=== PATIENT | male | born 1950 | race Caucasian/White ===

== ENCOUNTER 2017-07-19 14:18 | Inpatient (IN) | payer MEDICAID ==
[~2017-07-19] VITALS: Ht 175.3 cm; Wt 51.0 kg
[2017-07-19] MEDS: POTASSIUM CHLORIDE 40 MEQ in SODIUM CHLORIDE 0.9% 500 ML IV SCH ×2 (08:00→22:01)
[~2017-07-19 14:18] MED LIST: HYDR25PO5 PO; OXYC1TAB9 PO; RANI300T3 PO; atarax PO; tagamet PO
[2017-07-19] MEDS ORDERED: SODIUM CHLORIDE 0.9% 1,000 ML IV ONE (14:41)
[2017-07-19] MEDS ORDERED: SODIUM CHLORIDE 0.9% 1,000ML IVBOLUS ONE (15:00)
[2017-07-19] MEDS ORDERED: SODIUM CHLORIDE FLUSH 10ML SYR IVF ONE (15:00)
[2017-07-19 15:13] LABS: HEMATOCRIT 39.4 % (39.2-51.8); HEMOGLOBIN 13.1 g/dL (13.7-18.0); WHITE BLOOD COUNT 15.5 x10^3/uL (3.4-10)
[2017-07-19 15:25] LABS: ASPARTATE AMINO TRANSFERASE 15 U/L (15-37); BLOOD UREA NITROGEN 43 mg/dL (7-18)
[2017-07-19] MEDS ORDERED: CEFTRIAXONE PMX 1GM/50ML 50 ML IV ONE (15:30)
[2017-07-19] MEDS ORDERED: POTASSIUM CHLORIDE 40 MEQ in D5%-0.9% NACL 1,000 ML IV SCH (15:30)
[2017-07-19 15:51] LABS: ACETAMINOPHEN < 2 mcg/mL (10-30)
[2017-07-19 16:04] LABS: IS PT STATUS REG ER OR PRE ER? YES
[2017-07-19] MEDS ORDERED: PIPERACILLIN/TAZO/PMX 3.375GM 50 ML IV ONE (17:00)
[2017-07-19] MEDS ORDERED: SODIUM CHLORIDE 0.9%, 500ML IVBOLUS ONE (17:00)
[2017-07-19] MEDS ORDERED: PIPERACILLIN/TAZO/PMX 3.375GM 50 ML ONE (17:03)
[2017-07-19] MEDS ORDERED: DEXTROSE 5% 1,000 ML IV SCH (18:00)
[2017-07-19] MEDS ORDERED: hydrALAzine 20 MG/ML, 1ML IVPush PRN (18:00)
[2017-07-19] MEDS: NICOTINE 21 MG/24 HR PATCH.TD24 TD SCH (18:00)
[2017-07-19] MEDS ORDERED: PANTOPRAZOLE 20MG TABLET PO SCH (18:00)
[2017-07-19] MEDS ORDERED: ENOXAPARIN 40 MG/0.4 ML SQ SCH (18:00)
[2017-07-19] MEDS ORDERED: POTASSIUM PHOSPHATE 44 MEQ in SODIUM CHLORIDE 0.9% 500 ML IV ONE (18:00)
[2017-07-19] MEDS ORDERED: ONDANSETRON 2MG/ML, 2ML IVPush PRN (18:00)
[2017-07-19] MEDS ORDERED: VANCOMYCIN PER PHARMACY MC PRN (18:00)
[2017-07-19] MEDS ORDERED: ACETAMINOPHEN 325 MG TABLET PO PRN (18:00)
[2017-07-19] MEDS ORDERED: VANCOMYCIN PMX 1GM/200ML 200 ML IV ONE (18:00)
[2017-07-19] MEDS ORDERED: PHARMACOKINETIC CONSULTATION MC ONE (19:30)
[2017-07-19] MEDS ORDERED: VANCOMYCIN 1,400 MG in SODIUM CHLORIDE 0.9% 250 ML IV SCH (19:30)
[2017-07-19] MEDS ORDERED: PHARMACOKINETIC MONITORING MC PRN (19:30)
[2017-07-19 19:47] VITALS: BP 120/75
[2017-07-20 01:57] LABS: ABG COLLECTION SITE RIGHT FEMORAL
[2017-07-20 02:02] LABS: HEMATOCRIT 45.5 % (39.2-51.8)
[2017-07-20 02:12] LABS: ASPARTATE AMINO TRANSFERASE 33 U/L (15-37); BLOOD UREA NITROGEN 43 mg/dL (7-18)
[2017-07-20 02:15] VITALS: BP 55/41
[2017-07-20] MEDS ORDERED: NOREPINEPHRINE 4 MG in SODIUM CHLORIDE 0.9% 246 ML IV PRN (02:30)
[2017-07-20] MEDS ORDERED: SODIUM CHLORIDE 0.9% 1,000ML IVBOLUS ONE ×3 (02:30→08:00)
[2017-07-20] MEDS: PIPERACILLIN/TAZO/PMX 3.375GM 50 ML IV SCH ×4 (03:29→21:19)
[2017-07-20] MEDS ORDERED: POTASSIUM PHOSPHATE 44 MEQ in SODIUM CHLORIDE 0.9% 500 ML IV ONE (07:00)
[2017-07-20] MEDS ORDERED: SODIUM CHLORIDE 0.9%, 500ML IVBOLUS ONE ×2 (08:00→15:30)
[2017-07-20 08:46] LABS: DAU SCREEN DISCLAIMER
[2017-07-20] MEDS: THIAMINE 100 MG in SODIUM CHLORIDE 0.9% 50 ML IV SCH (09:57)
[2017-07-20] MEDS ORDERED: POTASSIUM CHLORIDE 20 MEQ in DEXTROSE 5% 1,000 ML IV SCH ×3 (10:00→13:00)
[2017-07-20] MEDS: PANTOPRAZOLE 40 MG IV IV SCH ×2 (10:49→22:14)
[2017-07-20 12:09] LABS: BLOOD UREA NITROGEN 37 mg/dL (7-18)
[2017-07-20] MEDS: NICOTINE 21 MG/24 HR PATCH.TD24 TD SCH (18:01)
[2017-07-20] MEDS: ENOXAPARIN 30 MG/0.3 ML SQ SCH (18:01)
[2017-07-21] MEDS: POTASSIUM CHLORIDE 20 MEQ in DEXTROSE 5% 1,000 ML IV SCH ×3 (00:21→17:15)
[2017-07-21] MEDS: PIPERACILLIN/TAZO/PMX 3.375GM 50 ML IV SCH ×4 (04:20→21:09)
[2017-07-21 05:05] LABS: BLOOD UREA NITROGEN 29 mg/dL (7-18)
[2017-07-21 05:58] LABS: HEMATOCRIT 31.9 % (39.2-51.8); HEMOGLOBIN 10.6 g/dL (13.7-18.0); WHITE BLOOD COUNT 10.6 x10^3/uL (3.4-10)
[2017-07-21] MEDS ORDERED: POTASSIUM PHOSPHATE 44 MEQ in SODIUM CHLORIDE 0.9% 500 ML IV ONE (07:00)
[2017-07-21] MEDS ORDERED: MAGNESIUM SULFATE PMX 4GM/100M 100 ML IV ONE (07:00)
[2017-07-21] MEDS: PANTOPRAZOLE 40 MG IV IV SCH (09:27)
[2017-07-21] MEDS: THIAMINE 100 MG in SODIUM CHLORIDE 0.9% 50 ML IV SCH (09:27)
[2017-07-21] MEDS ORDERED: VANCOMYCIN 1,000 MG in SODIUM CHLORIDE 0.9% 100 ML IV SCH (12:00)
[2017-07-21 14:24] VITALS: BP 102/67
[2017-07-21] MEDS: NICOTINE 21 MG/24 HR PATCH.TD24 TD SCH (17:15)
[2017-07-21] MEDS: ENOXAPARIN 30 MG/0.3 ML SQ SCH (17:15)
[2017-07-21 19:45] VITALS: BP 99/62
[2017-07-21] MEDS ORDERED: ACETAMINOPHEN 325 MG TABLET PO PRN (20:30)
[2017-07-21] MEDS ORDERED: ONDANSETRON 2MG/ML, 2ML IVPush PRN (20:30)
[2017-07-21] MEDS ORDERED: VANCOMYCIN PER PHARMACY MC PRN (20:30)
[2017-07-21] MEDS ORDERED: PHARMACOKINETIC MONITORING MC PRN (20:30)
[2017-07-21] MEDS ORDERED: hydrALAzine 20 MG/ML, 1ML IVPush PRN (20:30)
[2017-07-21] MEDS: MORPHINE SULFATE 4 MG/ML, 1ML IVPush PRN (21:09)
[2017-07-22] MEDS: POTASSIUM CHLORIDE 20 MEQ in DEXTROSE 5% 1,000 ML IV SCH (01:08)
[2017-07-22 02:20] VITALS: BP 100/65
[2017-07-22] MEDS: PIPERACILLIN/TAZO/PMX 3.375GM 50 ML IV SCH ×4 (03:31→20:55)
[2017-07-22 06:21] LABS: BLOOD UREA NITROGEN 14 mg/dL (7-18)
[2017-07-22 07:11] VITALS: BP 96/62
[2017-07-22] MEDS: THIAMINE 100 MG in SODIUM CHLORIDE 0.9% 50 ML IV SCH (09:23)
[2017-07-22] MEDS: PANTOPRAZOLE 40 MG IV IV SCH (09:24)
[2017-07-22] MEDS ORDERED: POTASSIUM CHLORIDE 20 MEQ in DEXTROSE 5% 1,000 ML IV SCH ×2 (10:30→22:00)
[2017-07-22 12:40] LABS: BLOOD UREA NITROGEN 11 mg/dL (7-18)
[2017-07-22 13:08] VITALS: BP 96/64
[2017-07-22] MEDS ORDERED: POTASSIUM CHLORIDE 20 MEQ TAB.ER.PRT PO ONE (15:00)
[2017-07-22] MEDS: NICOTINE 21 MG/24 HR PATCH.TD24 TD SCH (17:56)
[2017-07-22] MEDS: ENOXAPARIN 30 MG/0.3 ML SQ SCH (17:56)
[2017-07-22 18:24] LABS: BLOOD UREA NITROGEN 10 mg/dL (7-18)
[2017-07-22 19:37] VITALS: BP 84/55
[2017-07-22] MEDS ORDERED: SODIUM CHLORIDE 0.45% 1,000 ML IV SCH (20:00)
[2017-07-22] MEDS: MORPHINE SULFATE 4 MG/ML, 1ML IVPush PRN (20:55)
[2017-07-23] MEDS ORDERED: VANCOMYCIN 1,000 MG in SODIUM CHLORIDE 0.9% 100 ML IV SCH (01:00)
[2017-07-23 01:51] VITALS: BP 100/67
[2017-07-23] MEDS: PIPERACILLIN/TAZO/PMX 3.375GM 50 ML IV SCH ×2 (03:21→10:04)
[2017-07-23] MEDS: MORPHINE SULFATE 4 MG/ML, 1ML IVPush PRN (03:22)
[2017-07-23 04:59] LABS: HEMATOCRIT 29.5 % (39.2-51.8); HEMOGLOBIN 9.9 g/dL (13.7-18.0); WHITE BLOOD COUNT 6.6 x10^3/uL (3.4-10)
[2017-07-23 05:00] LABS: ASPARTATE AMINO TRANSFERASE 28 U/L (15-37); BLOOD UREA NITROGEN 7 mg/dL (7-18)
[2017-07-23 06:01] LABS: DIFF TOTAL CELLS COUNTED 100 CELL DIFF
[2017-07-23 06:03] LABS: VERIFY COUNTS? YES
[2017-07-23 06:04] LABS: ANISOCYTOSIS 1+; LARGE PLATELETS 1+; POLYCHROMASIA 1+
[2017-07-23 06:59] VITALS: BP 98/64
[2017-07-23] MEDS ORDERED: D5%-0.45% NACL 1,000 ML IV SCH (09:30)
[2017-07-23] MEDS: THIAMINE 100 MG in SODIUM CHLORIDE 0.9% 50 ML IV SCH (10:03)
[2017-07-23] MEDS: PANTOPRAZOLE 40 MG IV IV SCH (10:04)
[2017-07-23] MEDS: HYDROcodone/APAP 5/325 TABLET PO PRN ×3 (10:05→20:48)
[2017-07-23 13:14] VITALS: BP 96/61
[2017-07-23] MEDS ORDERED: CEFTRIAXONE PMX 1GM/50ML 50 ML IV SCH (16:00)
[2017-07-23] MEDS ORDERED: SODIUM PHOSPHATE 4 MEQ/ML IV SCH (16:00)
[2017-07-23] MEDS ORDERED: SODIUM PHOSPHATE 40 MEQ in SODIUM CHLORIDE 0.9% 500 ML IV ONE (16:30)
[2017-07-23] MEDS ORDERED: GADOBUTROL 10 MMOL/10 ML PFS ONE (16:33)
[2017-07-23] MEDS: ENOXAPARIN 30 MG/0.3 ML SQ SCH (18:29)
[2017-07-23] MEDS: NICOTINE 21 MG/24 HR PATCH.TD24 TD SCH (18:29)
[2017-07-23 19:55] VITALS: BP 103/62
[2017-07-23] MEDS ORDERED: DOXYCYCLINE 100MG TABLET PO SCH (21:00)
[2017-07-24 02:08] VITALS: BP 95/60
[2017-07-24 06:38] LABS: HEMATOCRIT 31.3 % (39.2-51.8); HEMOGLOBIN 10.5 g/dL (13.7-18.0); WHITE BLOOD COUNT 7.2 x10^3/uL (3.4-10)
[2017-07-24 07:20] VITALS: BP 99/63
[2017-07-24 08:03] LABS: BLOOD UREA NITROGEN 7 mg/dL (7-18)
[2017-07-24] MEDS: HYDROcodone/APAP 5/325 TABLET PO PRN ×2 (09:00→20:01)
[2017-07-24] MEDS: THIAMINE 100 MG in SODIUM CHLORIDE 0.9% 50 ML IV SCH (09:05)
[2017-07-24] MEDS ORDERED: LIDOCAINE 1%, 20ML ONE (10:09)
[2017-07-24] MEDS ORDERED: NALOXONE 1 MG/ML, 2ML ONE (11:00)
[2017-07-24] MEDS ORDERED: FENTANYL PF 100 MCG/2ML ONE (11:00)
[2017-07-24] MEDS ORDERED: FLUMAZENIL 0.1 MG/1 ML, 5ML ONE (11:00)
[2017-07-24] MEDS ORDERED: MIDAZOLAM 1 MG/ML, 5ML ONE (11:00)
[2017-07-24 13:14] VITALS: BP 97/59
[2017-07-24] MEDS: LEVOFLOXACIN/PMX 750MG/150ML 150 ML IV SCH (15:58)
[2017-07-24] MEDS: PANTOPRAZOLE 40 MG IV IVPush SCH (15:58)
[2017-07-24] MEDS: FENTANYL 50 MCG PATCH TD SCH (16:00)
[2017-07-24] MEDS: NICOTINE 21 MG/24 HR PATCH.TD24 TD SCH (18:13)
[2017-07-24 19:46] VITALS: BP 156/91
[2017-07-24] MEDS: D5%-0.45% NACL 1,000 ML IV SCH (20:01)
[2017-07-25] MEDS: HYDROcodone/APAP 5/325 TABLET PO PRN ×3 (02:41→09:53)
[2017-07-25 03:24] VITALS: BP 147/86
[2017-07-25] MEDS: D5%-0.45% NACL 1,000 ML IV SCH ×2 (06:00→17:39)
[2017-07-25 06:27] LABS: BLOOD UREA NITROGEN 6 mg/dL (7-18)
[2017-07-25 06:44] LABS: FERRITIN 480.2 ng/mL (26-388); TOTAL IRON BINDING CAPACITY 83 mcg/dL (250-450)
[2017-07-25 06:56] LABS: HEMATOCRIT 27.3 % (39.2-51.8); HEMOGLOBIN 9.2 g/dL (13.7-18.0)
[2017-07-25 07:46] VITALS: BP 90/60
[2017-07-25] MEDS: THIAMINE 100 MG in SODIUM CHLORIDE 0.9% 50 ML IV SCH (08:50)
[2017-07-25] MEDS: PANTOPRAZOLE 40 MG IV IVPush SCH (08:51)
[2017-07-25] MEDS: LEVOFLOXACIN/PMX 750MG/150ML 150 ML IV SCH (09:52)
[2017-07-25 12:57] VITALS: BP 84/54
[2017-07-25] MEDS: NICOTINE 21 MG/24 HR PATCH.TD24 TD SCH (17:36)
[2017-07-25 19:00] VITALS: BP 89/57
[2017-07-25 20:35] VITALS: BP 100/64
[2017-07-26] VITALS: BP 96/61
[2017-07-26 06:05] LABS: HEMATOCRIT 26.6 % (39.2-51.8); HEMOGLOBIN 9.1 g/dL (13.7-18.0); WHITE BLOOD COUNT 7.9 x10^3/uL (3.4-10)
[2017-07-26 06:08] LABS: BLOOD UREA NITROGEN 4 mg/dL (7-18)
[2017-07-26 06:11] LABS: ASPARTATE AMINO TRANSFERASE 16 U/L (15-37)
[2017-07-26 07:37] VITALS: BP 124/65
[2017-07-26] MEDS: THIAMINE 100 MG in SODIUM CHLORIDE 0.9% 50 ML IV SCH (09:42)
[2017-07-26] MEDS: PANTOPRAZOLE 40 MG IV IVPush SCH (09:42)
[2017-07-26] MEDS: LEVOFLOXACIN/PMX 750MG/150ML 150 ML IV SCH (11:15)
[2017-07-26] MEDS: D5%-0.45% NACL 1,000 ML IV SCH (11:17)
[2017-07-26 13:31] VITALS: BP 91/59
[2017-07-26] MEDS: HYDROcodone/APAP 5/325 TABLET PO PRN (15:10)
[2017-07-26] MEDS: NICOTINE 21 MG/24 HR PATCH.TD24 TD SCH (18:31)
[2017-07-26 19:17] VITALS: BP 86/60
[2017-07-27] MEDS: HYDROcodone/APAP 5/325 TABLET PO PRN ×4 (01:09→16:03)
[2017-07-27 02:11] VITALS: BP 92/58
[2017-07-27 05:02] LABS: HEMATOCRIT 25.1 % (39.2-51.8); HEMOGLOBIN 8.4 g/dL (13.7-18.0); WHITE BLOOD COUNT 6.7 x10^3/uL (3.4-10)
[2017-07-27 05:10] LABS: ASPARTATE AMINO TRANSFERASE 15 U/L (15-37); BLOOD UREA NITROGEN 4 mg/dL (7-18)
[2017-07-27 08:37] VITALS: BP 105/67
[2017-07-27] MEDS: PANTOPROZOLE 40MG TABLET PO SCH (11:22)
[2017-07-27] MEDS: THIAMINE 100 MG in SODIUM CHLORIDE 0.9% 50 ML IV SCH (11:23)
[2017-07-27] MEDS: D5%-0.45% NACL 1,000 ML IV SCH (11:24)
[2017-07-27] MEDS: FENTANYL 50 MCG PATCH TD SCH (12:37)
[2017-07-27] MEDS: LEVOFLOXACIN/PMX 750MG/150ML 150 ML IV SCH (13:44)
[2017-07-27 16:28] VITALS: BP 102/70
[2017-07-27] MEDS: NICOTINE 21 MG/24 HR PATCH.TD24 TD SCH (17:20)
[2017-07-27 18:44] VITALS: BP 94/62
[2017-07-28] MEDS: HYDROcodone/APAP 5/325 TABLET PO PRN ×5 (00:02→23:10)
[2017-07-28 02:45] VITALS: BP 100/57
[2017-07-28] MEDS: ALUMINUM/MAG/SIMETHICONE 30 ML UDC PO PRN (02:58)
[2017-07-28 06:25] LABS: HEMATOCRIT 25.9 % (39.2-51.8); HEMOGLOBIN 8.5 g/dL (13.7-18.0); WHITE BLOOD COUNT 8.6 x10^3/uL (3.4-10)
[2017-07-28] MEDS: PANTOPROZOLE 40MG TABLET PO SCH (06:27)
[2017-07-28 06:44] LABS: BLOOD UREA NITROGEN 4 mg/dL (7-18)
[2017-07-28] MEDS: D5%-0.45% NACL 1,000 ML IV SCH (08:07)
[2017-07-28 08:40] VITALS: BP 121/76
[2017-07-28] MEDS: THIAMINE 100 MG in SODIUM CHLORIDE 0.9% 50 ML IV SCH (09:38)
[2017-07-28] MEDS ORDERED: POTASSIUM CHLORIDE 20 MEQ in SODIUM CHLORIDE 0.9% 250 ML IV ONE (10:30)
[2017-07-28 13:54] VITALS: BP 112/72
[2017-07-28] MEDS ORDERED: OMNIPAQUE 350 MG/ML, 100ML BOTTLE ONE (14:43)
[2017-07-28] MEDS: LEVOFLOXACIN/PMX 750MG/150ML 150 ML IV SCH (14:55)
[2017-07-28] MEDS: NICOTINE 21 MG/24 HR PATCH.TD24 TD SCH (14:55)
[2017-07-28 19:02] VITALS: BP 92/59
[2017-07-28] MEDS ORDERED: ACETAMINOPHEN 325 MG TABLET PO PRN (20:30)
[2017-07-28] MEDS ORDERED: hydrALAzine 20 MG/ML, 1ML IVPush PRN (20:30)
[2017-07-29 01:51] VITALS: BP 93/58
[2017-07-29] MEDS: HYDROcodone/APAP 5/325 TABLET PO PRN ×5 (03:52→23:29)
[2017-07-29 05:36] LABS: HEMATOCRIT 23.2 % (39.2-51.8); HEMOGLOBIN 7.8 g/dL (13.7-18.0); WHITE BLOOD COUNT 8.4 x10^3/uL (3.4-10)
[2017-07-29 05:44] LABS: BLOOD UREA NITROGEN 5 mg/dL (7-18)
[2017-07-29 07:36] VITALS: BP 99/65
[2017-07-29] MEDS: THIAMINE 100 MG in SODIUM CHLORIDE 0.9% 50 ML IV SCH (10:16)
[2017-07-29] MEDS: PANTOPROZOLE 40MG TABLET PO SCH (10:16)
[2017-07-29 15:53] VITALS: BP 96/59
[2017-07-29] MEDS: NICOTINE 21 MG/24 HR PATCH.TD24 TD SCH (18:22)
[2017-07-29 19:33] VITALS: BP 101/66
[2017-07-30 00:58] VITALS: BP 111/71
[2017-07-30] MEDS: HYDROcodone/APAP 5/325 TABLET PO PRN ×5 (04:26→23:57)
[2017-07-30] MEDS ORDERED: PINK BISMUTH 87.33 MG/5 ML ORAL SUSP PO PRN (08:30)
[2017-07-30] MEDS ORDERED: FENTANYL 100 MCG PATCH ONE (08:45)
[2017-07-30] MEDS: PANTOPROZOLE 40MG TABLET PO SCH (09:03)
[2017-07-30] MEDS: FENTANYL 100 MCG PATCH TD SCH (09:04)
[2017-07-30] MEDS: FENTANYL REMOVE PATCH NOTE XX SCH (09:05)
[2017-07-30 09:15] VITALS: BP 116/71
[2017-07-30 13:53] VITALS: BP 99/66
[2017-07-30] MEDS: LIDODERM 5% PATCH TD SCH (14:58)
[2017-07-30 19:03] VITALS: BP 101/68
[2017-07-30] MEDS: NICOTINE 21 MG/24 HR PATCH.TD24 TD SCH (19:23)
[2017-07-31 01:26] VITALS: BP 92/56
[2017-07-31 05:15] LABS: HEMATOCRIT 26.1 % (39.2-51.8); HEMOGLOBIN 8.7 g/dL (13.7-18.0); WHITE BLOOD COUNT 8.2 x10^3/uL (3.4-10)
[2017-07-31 05:20] LABS: BLOOD UREA NITROGEN 7 mg/dL (7-18)
[2017-07-31] MEDS: HYDROcodone/APAP 5/325 TABLET PO PRN ×4 (06:08→21:04)
[2017-07-31 07:10] VITALS: BP 93/62
[2017-07-31] MEDS: PANTOPROZOLE 40MG TABLET PO SCH (08:43)
[2017-07-31] MEDS: PINK BISMUTH 87.33 MG/5 ML ORAL SUSP PO PRN (08:44)
[2017-07-31] MEDS: LIDODERM 5% PATCH TD SCH (14:43)
[2017-07-31 14:57] VITALS: BP 95/63
[2017-07-31 19:46] VITALS: BP 96/63
[2017-07-31] MEDS: NICOTINE 21 MG/24 HR PATCH.TD24 TD SCH (21:04)
[2017-08-01] MEDS: HYDROcodone/APAP 5/325 TABLET PO PRN ×4 (01:03→17:43)
[2017-08-01 01:06] VITALS: BP 107/71
[2017-08-01] MEDS: FENTANYL 100 MCG PATCH TD SCH (03:58)
[2017-08-01] MEDS: ALUMINUM/MAG/SIMETHICONE 30 ML UDC PO PRN (04:00)
[2017-08-01 04:31] LABS: HEMATOCRIT 25.3 % (39.2-51.8); HEMOGLOBIN 8.3 g/dL (13.7-18.0); WHITE BLOOD COUNT 7.3 x10^3/uL (3.4-10)
[2017-08-01 04:36] LABS: BLOOD UREA NITROGEN 9 mg/dL (7-18)
[2017-08-01] MEDS ORDERED: HYDROmorphone 1 MG/ML, 1ML IV PRN (06:30)
[2017-08-01 06:55] VITALS: BP 100/64
[2017-08-01] MEDS: LIDODERM 5% PATCH TD SCH (08:21)
[2017-08-01] MEDS: PANTOPROZOLE 40MG TABLET PO SCH (08:21)
[2017-08-01 14:07] VITALS: BP 96/62
[2017-08-01 19:06] VITALS: BP 99/64
[2017-08-01] MEDS: NICOTINE 21 MG/24 HR PATCH.TD24 TD SCH (20:05)
[2017-08-02 01:54] VITALS: BP 100/65
[2017-08-02] MEDS: HYDROcodone/APAP 5/325 TABLET PO PRN ×3 (03:38→17:19)
[2017-08-02 08:00] VITALS: BP 98/65
[2017-08-02] MEDS: PANTOPROZOLE 40MG TABLET PO SCH (09:31)
[2017-08-02] MEDS: FENTANYL REMOVE PATCH NOTE XX SCH (10:29)
[2017-08-02] MEDS: FENTANYL 100 MCG PATCH TD SCH (10:38)
[2017-08-02 13:27] VITALS: BP 97/63
[2017-08-02 18:35] VITALS: BP 95/61
[2017-08-02] MEDS: NICOTINE 21 MG/24 HR PATCH.TD24 TD SCH (20:04)
[2017-08-02] MEDS: LIDODERM 5% PATCH TD SCH (20:04)
[2017-08-02] MEDS: ALUMINUM/MAG/SIMETHICONE 30 ML UDC PO PRN (20:20)
[2017-08-03 01:04] VITALS: BP 98/55
[2017-08-03 03:13] LABS: HEMATOCRIT 24.4 % (39.2-51.8); WHITE BLOOD COUNT 8.8 x10^3/uL (3.4-10)
[2017-08-03 03:24] LABS: BLOOD UREA NITROGEN 8 mg/dL (7-18)
[2017-08-03] MEDS: ALUMINUM/MAG/SIMETHICONE 30 ML UDC PO PRN (06:05)
[2017-08-03] MEDS: LIDODERM 5% PATCH TD SCH (09:00)
[2017-08-03 09:07] VITALS: BP 111/72
[2017-08-03] MEDS: PANTOPROZOLE 40MG TABLET PO SCH (09:23)
[2017-08-03] MEDS: HYDROcodone/APAP 5/325 TABLET PO PRN ×2 (09:58→16:05)
[2017-08-03] MEDS ORDERED: Lidoderm 5% Patch TD (10:35)
[2017-08-03] MEDS ORDERED: PANT40TA5 PO (10:35)
[2017-08-03] MEDS ORDERED: FENT1PAT78 TD (10:35)
[2017-08-03] MEDS ORDERED: HYDR2TAB29 PO (10:35)
[2017-08-03] MEDS: PINK BISMUTH 87.33 MG/5 ML ORAL SUSP PO PRN (11:14)
[2017-08-03 15:59] VITALS: BP 103/63
== END 2017-08-03 17:21 | DRG 435 ==
LOC: ED 16:58 → EDIP 16:59 → ED 17:05 → 4EST 18:50 → CCU 07-20 01:50 → 3NW 07-21 14:05
PROVIDERS: ADMIT Internal Medicine; ATTEND Internal Medicine
PROC: 02HV33Z Insertion of Infusion Device into Superior Vena Cava, Percutaneous Approach (ICD-10-PCS; 2017-07-20)
PROC: B548ZZA Ultrasonography of Superior Vena Cava, Guidance (ICD-10-PCS; 2017-07-20)
PROC: 0FB23ZX Excision of Left Lobe Liver, Percutaneous Approach, Diagnostic (ICD-10-PCS; principal; 2017-07-24)
DX: C78.7 Secondary malignant neoplasm of liver and intrahepatic bile duct (principal); E43 Unspecified severe protein-calorie malnutrition; J96.00 Acute respiratory failure, unspecified whether with hypoxia or hypercapnia; N17.0 Acute kidney failure with tubular necrosis; G93.41 Metabolic encephalopathy; E87.4 Mixed disorder of acid-base balance; J18.9 Pneumonia, unspecified organism; D68.9 Coagulation defect, unspecified; C34.90 Malignant neoplasm of unspecified part of unspecified bronchus or lung; E87.0 Hyperosmolality and hypernatremia; Z68.1 Body mass index [BMI] 19.9 or less, adult; R13.10 Dysphagia, unspecified; E83.39 Other disorders of phosphorus metabolism; D69.6 Thrombocytopenia, unspecified; D63.8 Anemia in other chronic diseases classified elsewhere; E83.42 Hypomagnesemia; E83.52 Hypercalcemia; E86.0 Dehydration; E87.6 Hypokalemia; I10 Essential (primary) hypertension; N28.89 Other specified disorders of kidney and ureter; R62.7 Adult failure to thrive; J32.1 Chronic frontal sinusitis; Z66 Do not resuscitate; K27.9 Peptic ulcer, site unspecified, unspecified as acute or chronic, without hemorrhage or perforation; Z90.49 Acquired absence of other specified parts of digestive tract; Z72.0 Tobacco use; Z87.11 Personal history of peptic ulcer disease; Z92.21 Personal history of antineoplastic chemotherapy; Z93.3 Colostomy status
CPT/HCPCS: 36415; 36569; 36600; 47000; 70450; 70553; 71010; 71260; 74177; 74230; 76937; 76942; 77001; 80048; 80053; 80076; 80202; 80307; 80329; 81001; 82010; 82040; 82105; 82140; 82306; 82550; 82607; 82728; 82746; 82803; 82962; 83540; 83550; 83605; 83690; 83735; 83970; 84100; 84439; 84443; 84484; 85025; 85610; 86022; 86480; 87040; 87081; 87086; 88307; 88341; 88342; 93005; 96361; 96365; 96366; 96368; A9585; J0696; J1650; J1956; J2250; J2405; J2543; J3010; J3370; J3411; J3480; J3490; J7042; J7070; Q9967; 92523-GN; C1751; C9113; G0461; G0479; G0480; J2310; J3475; J7030; J7040; J7050; Q0177